=== PATIENT | female | born 1960 | race Caucasian/White ===

== ENCOUNTER 2016-12-10 23:53 | Emergency (ER) | payer OTHER ==
[2014-03-10 17:47] VITALS: BMI 40.8
[~2016-12-10 23:53] MED LIST: BACTRIM DS TABL1 TAB PO; BAYER CHEWABLE81 MG PO; CELEBREX200 MG PO; CYMBALTA60 MG PO; FARXIGA10 MG PO; FISH OIL 1,0001 CA1 PO; GLUCOPHAGE500 MG PO; GLUCOSAMINE & C1 CAP PO; HYDROCODON-ACE1 EAC9 PO; HYDROCODONE-APA1 TAB PO; LISINOPRIL5 MG GT; LYRICA75 MG PO; VITAMIN D2000 UNIT PO; WELCHOL625 MG PO; ZANAFLEX4 MG PO
[2016-12-11 00:41] LABS: BASOPHILS 0.2 % (0-2); EOSINOPHILS 1.3 % (0-7); HEMATOCRIT 37.1 % (36.0-48.0); IMMATURE GRANULOCYTES 0.3 % (0-5); LYMPHOCYTES 32.3 % (15-50); MCH 27.6 pg (26.0-34.0); MCHC 32.3 g/dL (31.0-37.0); MCV 85.5 fL (80.0-100.0); MEAN PLATELET VOLUME 11.4 fL (7.4-10.4); MONOCYTES 6.3 % (2-11); NEUTROPHILS 59.6 % (40-80); PLATELET COUNT 234 10x3/uL (130-400); RBC 4.34 10x6/uL (4.00-5.40); RDW 13.7 % (11.5-14.5); WBC 10.7 10x3/uL (4.8-10.8)
[2016-12-11 00:47] LABS: APPEARANCE CLEAR (CLEAR); COLOR YELLOW (YELLOW)
[2016-12-11 00:47] LABS: ALBUMIN 3.2 g/dL (3.4-5.0); ALKALINE PHOSPHATASE 86 U/L (46-116); ALT (SGPT) 47 U/L (10-68); BILIRUBIN - TOTAL 0.38 mg/dL (0.2-1.3); CALC OSMOLALITY 282 mosm/kg (275-300); CALCIUM 8.7 mg/dL (8.5-10.1); CARBON DIOXIDE 29.2 mmol/L (21.0-32.0); CHLORIDE - SERUM 104 mmol/L (98-107); CREATININE - SERUM 1.2 mg/dL (0.6-1.3); GLUCOSE 165 mg/dL (74-106); POTASSIUM - SERUM 3.4 mmol/L (3.5-5.1); SODIUM 139 mmol/L (136-145); UREA NITROGEN 15 mg/dL (7-18); eGFR NON AFRICAN AMERICAN 50 mL/min (90-120)
[2016-12-11 00:48] LABS: BILIRUBIN NEGATIVE (NEGATIVE); GLUCOSE NEGATIVE (NEGATIVE); KETONE NEGATIVE (NEGATIVE); LEUKOCYTE ESTERASE TRACE (NEGATIVE); NITRITE NEGATIVE (NEGATIVE); PROTEIN 1+ mg/dL (NEGATIVE); UROBILINOGEN NORMAL (NORMAL)
[2016-12-11 00:49] LABS: BACTERIA MODERATE /hpf (NONE SEEN); EPITHELIAL CELLS 0-5 /hpf (0-5); GRANULAR CAST 0-5 /lpf (NONE SEEN); MUCUS <1+ /lpf (NONE SEEN); RED CELLS - URINE 0-5 /hpf (0-5); WHITE CELLS - URINE 0-5 /hpf (0-5)
[2016-12-11 00:51] LABS: ACETAMINOPHEN < 0.2 ug/mL (10.0-30.0)
[2016-12-11 00:53] LABS: UDS - AMPHET NEGATIVE QUAL (NEGATIVE); UDS - BARB NEGATIVE QUAL (NEGATIVE); UDS - BENZO NEGATIVE QUAL (NEGATIVE); UDS - COCAINE NEGATIVE QUAL (NEGATIVE); UDS - METH NEGATIVE QUAL (NEGATIVE); UDS - OPIATE NEGATIVE QUAL (NEGATIVE); UDS - PCP NEGATIVE QUAL (NEGATIVE); UDS - THC NEGATIVE QUAL (NEGATIVE)
== END 2016-12-11 11:43 | disposition home or self-care (01) ==
LOC: D.ER 23:53
PROVIDERS: Family Medicine
DX: T42.6X2A Poisoning by other antiepileptic and sedative-hypnotic drugs, intentional self-harm, initial encounter (principal); Y92.89 Other specified places as the place of occurrence of the external cause; F19.10 Other psychoactive substance abuse, uncomplicated; E11.9 Type 2 diabetes mellitus without complications; I10 Essential (primary) hypertension; R00.0 Tachycardia, unspecified

== ENCOUNTER → 2018-06-16 18:32 | Outpatient (CLI) | payer OTHER ==
[2014-03-10 17:47] VITALS: BMI 40.8
== END | disposition home or self-care (01) ==
LOC: D.MAMMO 05-20 11:45
DX: Z12.31 Encounter for screening mammogram for malignant neoplasm of breast (principal)

== ENCOUNTER 2018-09-03 19:00 | Outpatient (CLI) | payer OTHER ==
[2014-03-10 17:47] VITALS: BMI 40.8
== END 2018-09-03 23:59 | disposition home or self-care (01) ==
LOC: D.MAMMO 19:00
PROVIDERS: ATTEND Family Medicine
DX: R92.8 Other abnormal and inconclusive findings on diagnostic imaging of breast (principal)

== ENCOUNTER 2018-09-25 11:50 | Observation (INO) | payer OTHER ==
[2018-09-25] VITALS (13 sets, daily range): BP systolic 101–169; BP diastolic 80–97; Ht 170.2 cm; Wt 106.9 kg
[~2018-09-25] VITALS: Ht 170.2 cm; Wt 106.9 kg
--- NOTE | 2018-09-25 12:10 | NUR ---
SPOKE WITH ABIOLA AT [facility] - RECOMMENDS SUPPORTIVE CARE AND MONITORING, THAT PATIENT MAY BECOME HYPOTENSIVE SO NO BP MEDS ARE INDICATED FOR HYPERTENSION. RECOMMENDED A MINIMUM OF 6-8 HOURS OF MONITORING WITH FLUIDS AND POSITIONING WELL MEDICATIONS INDICATED FOR SINUS BRADYCARDIA AND HYPOTENSION IF IT OCCURS (I.E. ATROPINE AND PRESSORS)
[2018-09-25 12:29] LABS: BASOPHILS 0.1 % (0-2); EOSINOPHILS 0.2 % (0-7); HEMATOCRIT 39.9 % (36.0-48.0); HEMOGLOBIN 13.2 g/dL (12-16); IMMATURE GRANULOCYTES 0.4 % (0-5); LYMPHOCYTES 18.8 % (15-50); MCH 26.9 pg (26.0-34.0); MCHC 33.1 g/dL (31.0-37.0); MCV 81.3 fL (80.0-100.0); MEAN PLATELET VOLUME 11.6 fL (7.4-10.4); MONOCYTES 5.8 % (2-11); NEUTROPHILS 74.7 % (40-80); RBC 4.91 10x6/uL (4.00-5.40); RDW 14.4 % (11.5-14.5); WBC 16.8 10x3/uL (4.8-10.8)
--- NOTE | 2018-09-25 12:34 | NUR ---
SITTER HERE TO WATCH PT.
--- NOTE | 2018-09-25 12:38 | NUR ---
DISCUSS WITH PT WHAT IS GOING ON IN HER LIFE TO UPSET HER, SHE STATES HER MOM IN JULY, THEN SHE HAD TO TAKE CARE OF HER FATHER, HER YOUNGEST DAUGHTER GRADUATED, SHE STATES SHE REALLY NEVER GOT TO GRIEVE HER MOM'S .
[2018-09-25 12:47] LABS: ALBUMIN 3.6 g/dL (3.4-5.0); ANION GAP 14.5 mmol/L (8-16); BILIRUBIN - TOTAL 0.83 mg/dL (0.2-1.3); CARBON DIOXIDE 22.6 mmol/L (21.0-32.0); CREATININE - SERUM 1.1 mg/dL (0.6-1.3); POTASSIUM - SERUM 4.1 mmol/L (3.5-5.1); PROTEIN - SERUM 7.9 g/dL (6.4-8.2)
[2018-09-25 12:54] LABS: PLATELET COUNT 302 10x3/uL (130-400)
[2018-09-25 13:02] LABS: UDS - AMPHET NEGATIVE QUAL (NEGATIVE); UDS - BARB NEGATIVE QUAL (NEGATIVE); UDS - BENZO NEGATIVE QUAL (NEGATIVE); UDS - COCAINE NEGATIVE QUAL (NEGATIVE); UDS - OPIATE NEGATIVE QUAL (NEGATIVE); UDS - PCP NEGATIVE QUAL (NEGATIVE); UDS - THC NEGATIVE QUAL (NEGATIVE)
[2018-09-25 13:09] LABS: APPEARANCE CLEAR (CLEAR); COLOR YELLOW (YELLOW); NITRITE NEGATIVE (NEGATIVE); PROTEIN 1+ mg/dL (NEGATIVE); SPECIFIC GRAVITY 1.015 (1.005-1.020)
[2018-09-25 13:10] LABS: BACTERIA FEW /hpf (NONE SEEN); BILIRUBIN NEGATIVE (NEGATIVE); EPITHELIAL CELLS RARE /hpf (0-5); GLUCOSE 1000 mg/dL (NEGATIVE); KETONE NEGATIVE (NEGATIVE); MUCUS <1+ /lpf (NONE SEEN); UROBILINOGEN NORMAL (NORMAL); WHITE CELLS - URINE RARE /hpf (0-5)
--- NOTE | 2018-09-25 13:22 | NUR ---
DR ROBERTS WHO IS STANDING IN FOR DR SMILEY WAS NOTIFIED AND 1:1 SITTER OBSERVATION ORDERED. SITTER AT BEDSIDE. NOTIFIED CHARGE NURSE AND ATTENDING IN REGARDS TO ASSESSMENT FINDINGS. RESOURCES GIVEN TO PATIENT AND SAFETY PLAN INITIATED.
--- NOTE | 2018-09-25 16:36 | NUR ---
FSBS [address] MCFADDEN FOR NEW ORDERS
--- NOTE | 2018-09-25 17:42 | NUR ---
PATIENT BEGAN YANKED OUT IV, STATING I'M LEAVING, BECAME VERY AGRESSIVE AND SCRAMING AT THE TOP OF HER LUNGS. CURSING AND CLALLING STAFF NAMES. PATIENT SCREAMING AND YELLING OUT SHE IS DIABETIC AND SHE COULD , WILL NOT LISTEN TO ANYTHING THE STAFF HAS TO SAY AND HAS BECOME A DEFINATE THEAT TO SELF, YELLING I WANT TO , I JUST WANT TO , DR. MCFADDEN PAGED THROUGH ANSWERING SERVICE FOR FURTHER INSTRUCTION.
--- NOTE | 2018-09-25 18:42 | NUR ---
PATIENT C/O NAUSEA, WATER TAKEN FROM HER AND ZOFRAN GIVEN, AID THEN GAVE WATER BACK TO HER
--- NOTE | 2018-09-25 19:05 | NUR ---
SHIFT ASSESSMENT COMPLETED - SEE FLOWSHEET PATIENT AGITATED YELLING, RESTRAINED AT THIS TIME. PATIENT AWARE TO SELF ONLY. VSS CPOC
--- NOTE | 2018-09-25 20:00 | NUR ---
ATTEMPTS MADE TO REORIENT PATIENT, RESTRAINT REMOVED AT THIS TIME - PATIENT UP TO BEDSIDE WITH MINIMAL ASSISTANCE, COMPLETE LINEN CHANGE COMPLETED. PATIENT VOIDED IN BEDSIDE AND RETURNED TO BED, PLACED BACK ON ICU MONITORING, SITTER AT BEDSIDE. VSS CPOC
--- NOTE | 2018-09-25 20:30 | NUR ---
RESTRAINTS RETURNED AT THIS TIME, PATIENT PULLING AT IV'S AND ATTEMPTING TO REMOVE OXYGEN. REORIENTATION ATTEMPTED.
--- NOTE | 2018-09-25 22:30 | NUR ---
PATIENT SWEATING PROFUSELY, BLOOD SUGAR CHECKED AND INSULIN RECEIVED SEE FLOWSHEET AND EMAR FOR MEDICATION ADMINISTRATION. COMPLETE LINEN CHANGE DONE, PATIENT ASSISTED TO BEDSIDE COMMODE SET UP FOR BATH, PATIENT PERFORMED BATH INDEPENDANTLY. MOVED BACK TO BED AND RE CONNECTED TO ICU MONITORS AT THIS TIME.
--- NOTE | 2018-09-25 23:00 | NUR ---
PATIENT HALLUCINATING AT THIS TIME. SCREAMING WANTING SITTER TO TURN THE LIGHT OFF THE CEILING. STATED "THERES A BUG ON YOUR HEAD" PATIENT CONTINUE TO SWEAT PROFUSELY AND STARE AT THE CEILING LOOKING AT THINGS THAT AREN'T THERE
[2018-09-26] VITALS (23 sets, daily range): BP systolic 77–142; BP diastolic 46–93
--- NOTE | 2018-09-26 01:12 | NUR ---
SITTER AT BEDSIDE - PATIENT SLEEPING OFF AND ON - VSS CPOC
--- NOTE | 2018-09-26 03:15 | NUR ---
REASSESSMENT COMPLETED SEE FLOWSHEET
[2018-09-26 03:38] LABS: BASOPHILS 0.2 % (0-2); EOSINOPHILS 0.3 % (0-7); HEMATOCRIT 41.5 % (36.0-48.0); HEMOGLOBIN 13.9 g/dL (12-16); IMMATURE GRANULOCYTES 0.4 % (0-5); LYMPHOCYTES 18.8 % (15-50); MCH 27.1 pg (26.0-34.0); MCHC 33.5 g/dL (31.0-37.0); MCV 81.1 fL (80.0-100.0); MEAN PLATELET VOLUME 11.5 fL (7.4-10.4); MONOCYTES 4.9 % (2-11); NEUTROPHILS 75.4 % (40-80); PLATELET COUNT 254 10x3/uL (130-400); RBC 5.12 10x6/uL (4.00-5.40); RDW 14.3 % (11.5-14.5); WBC 19.8 10x3/uL (4.8-10.8)
[2018-09-26 03:54] LABS: ANION GAP 16.4 mmol/L (8-16); CALCIUM 8.9 mg/dL (8.5-10.1); CARBON DIOXIDE 19.6 mmol/L (21.0-32.0)
--- NOTE | 2018-09-26 06:11 | NUR ---
IV START ATTEMPT X 2 - UNSUCCESSFUL, NO IV ACCESS AT THIS TIME. PT AWAKE ALERT AND ORIENTED. X4 VSS CPOC
--- NOTE | 2018-09-26 10:30 | NUR ---
PATIENT FAMILY BROUGHT A SUACIDE NOTE MADE BY PATIENT, COPY PLACED IN CHART.
--- NOTE | 2018-09-26 15:42 | NUR ---
reviewed pt's case with dr. gomes and after completing frequent screener, it was felt by dr. gomes that the pt's observation status could be changed to line of sight.
--- NOTE | 2018-09-26 19:05 | NUR ---
PT COMPLAINS OF HEADACHE LASTING ALL DAY AND NAUSEA THAT JUST STARTED FOR THE LAST FEW HOURS, PATIENT RECEIVED ZOFRAN 1840 - PATIENT EDUCATION PROVIDED REGARDING MEDICATION SCHEDULE. COLD RAG PROVIDED FOR COMFORT. PATIENT AWAKE ALERT AND ORIENTED - SHIFT ASSESSMENT COMPLETED SEE FLOWSHEET
--- NOTE | 2018-09-26 20:17 | NUR ---
PAGED GIZZARD SKIN REMOVER
--- NOTE | 2018-09-26 20:29 | NUR ---
DR MCFADDEN RETURNED PAGE NEW ORDERS RECEIVED
--- NOTE | 2018-09-26 20:35 | NUR ---
PATIENT OOB TO BEDSIDE WITH MINIMAL ASSITANCE, URINE NOTED
--- NOTE | 2018-09-26 23:01 | NUR ---
REASSESMENT COMPLETED SEE FLOWSHEET
[2018-09-27] VITALS (21 sets, daily range): BP systolic 107–156; BP diastolic 55–86
--- NOTE | 2018-09-27 00:21 | NUR ---
GAVE REPORT TO JAS BEAVER
--- NOTE | 2018-09-27 03:14 | NUR ---
WENT INTO PATIENTS ROOM DUE TO LEAD BEING OFF FROM HEART MONITOR. MONITOR BACK ON. PATIENT COMPLAINED OF STILL HAVING HEADACHE AND NOT BEING ABLE TO SLEEP. TYLENOL NOT ABLE TO GIVE YET. VITALS WNL. CPOC. WILL CONTINUE TO MONITOR.
[2018-09-27 04:15] LABS: BASOPHILS 0.3 % (0-2); EOSINOPHILS 1.4 % (0-7); HEMOGLOBIN 12.4 g/dL (12-16); IMMATURE GRANULOCYTES 0.2 % (0-5); LYMPHOCYTES 35.6 % (15-50); MCHC 31.8 g/dL (31.0-37.0); MCV 81.8 fL (80.0-100.0); MEAN PLATELET VOLUME 10.9 fL (7.4-10.4); NEUTROPHILS 55.5 % (40-80); RBC 4.77 10x6/uL (4.00-5.40); RDW 14.4 % (11.5-14.5)
[2018-09-27 04:17] LABS: ANION GAP 14.2 mmol/L (8-16); CALCIUM 8.3 mg/dL (8.5-10.1); CARBON DIOXIDE 24.4 mmol/L (21.0-32.0); PLATELET COUNT 189 10x3/uL (130-400); POTASSIUM - SERUM 3.6 mmol/L (3.5-5.1)
--- NOTE | 2018-09-27 05:02 | NUR ---
TYLENOL GIVEN PER ORDER ON JUN FOR HEADACHE. DENIES FURTHER NEEDS. CPOC
--- NOTE | 2018-09-27 08:16 | NUR ---
AWAKE, ALERT AND ORIENTED, COOPERATIVE, SITTING UP EATING BREAKFAST, VS HAVE APPEARED TO RETRUN TO PATIENTS PERVIOUS NORMAL RANGE.
--- NOTE | 2018-09-27 10:03 | NUR ---
CALM, COOPERATIVE, WATCHING TV, NO DISTRESS NOTED
[2018-09-27] MEDS ORDERED: LYRICA100 MG PO (11:10)
[2018-09-27] MEDS ORDERED: DICLOFENAC SODI50 MG PO (11:11)
[2018-09-27] MEDS ORDERED: JANUMET XR 50-1 EACH PO (11:11)
--- NOTE | 2018-09-27 11:12 | NUR ---
AWAKE ALERT AND ORIENTED, C/O NAUSEA, ZOFRAN GIVEN, CALM AND COOPERATIVE.
--- NOTE | 2018-09-27 14:19 | NUR ---
PATIENT C/O BEING HOT, TEMP. 98.3, FSBS 155 NO NOTED DISTESS
--- NOTE | 2018-09-27 19:27 | NUR ---
UP IN BED WATCHING TV. NO DISTRESS NOTED AT THIS TIME. INTRODUCED SELF. DENIES NEEDS OR PAIN. CALL LIGHT IN REACH. WILL CONTINUE TO MONITOR. CPOC.
--- NOTE | 2018-09-27 21:00 | NUR ---
CHD BATH GIVEN. PATIENT INDEPENDENTLY BATHED SELF. NEW GOWN APPLIED. NIGHT TIME MEDS GIVEN. DENIES NEEDS OR PAIN AT THIS TIME. WCTM
--- NOTE | 2018-09-27 22:59 | NUR ---
LYING IN BED WATCHING TV. CALL LIGHT IN REACH. DENIES NEEDS OR PAIN AT THIS TIME. TM
[2018-09-28] VITALS (18 sets, daily range): BP systolic 105–151; BP diastolic 58–86
--- NOTE | 2018-09-28 01:00 | NUR ---
PT RESTING QUEITLY. EYE CLOSED. RESP EVEN AND UNLABORED. NO DISTRESS NOTED. CPOC
--- NOTE | 2018-09-28 03:00 | NUR ---
pt resting quietly. no distress noted. cl in reach. cpoc.
--- NOTE | 2018-09-28 04:42 | NUR ---
PATIENT IS SLEEPING WITH SNORING RESP. NO CHANGES IN PAITENT CONDITION, AGREE WITH PREVIOUS ASSESSMENT. CM SR AT 82. CALL LIGHT WIHTIN REACH, BED IN LOW POSITION.
--- NOTE | 2018-09-28 05:04 | NUR ---
DAILY WEIGHT 235.3. PT RESTING QUIETLY. EYES CLOSED. NO DISTRESS NOTED. CPOC
--- NOTE | 2018-09-28 07:00 | NUR ---
SHIFT ASSESSMENT COMPELTED. PT CARE ASSUMED MONITORS ON AND WORKING, VITALS STABLE. NO SIGNS/SYMPTOMS OF PAIN OR DISCOMFORT NOTED. PT RESTING COMFORTABLY. PT HAS SITTER AT BEDSIDE, WILL CONTINUE TO OBSERVE.
--- NOTE | 2018-09-28 08:31 | HP ---
PATIENT: RAFAELA CUELLO MEDICAL RECORD: [id number] ACCOUNT: [id number] LOCATION:[facility] [id number] : 64 ADMISSION DATE: 09/25/18 PCP: KOKO LOZA DO HISTORY AND PHYSICAL EXAMINATION DATE OF ADMISSION: 09/25/2018 CHIEF COMPLAINT: Intentional overdose. HISTORY: This is a 58-year-old female who is a patient of Dr. Koko Loza. She was brought in, in a private automobile with a story that she took 120 of 4 mg Zanaflex at 10:00 a.m. in an intentional suicide attempt. In the ER, heart rate was in the 40s. Rest of her vital signs was stable. Liver enzymes were a little elevated. White count was 16,000. Urine drug screen was negative. Salicylate and acetaminophen levels were negative. She was admitted to ICU for further closer monitoring and evaluation. PAST MEDICAL AND SURGICAL HISTORY: (gained from chart as the patient is not her usual self) diabetes, hypertension, depression, arthritis, and fibromyalgia. She has had one other suicide attempt when she took multiple Ambien about 8 months ago. PAST SURGICAL HISTORY: Unknown. ALLERGIES: CEFDINIR. HOME MEDICATIONS: Lisinopril 5 mg a day, Celebrex 200 mg a day, Cymbalta 60 mg a day, aspirin 81 mg a day, glucosamine/chondroitin sulfate twice a day, vitamin D3 4000 units a day, fish oil 1000 mg a day, tizanidine 8 mg at bedtime, Lyrica 75 mg at bedtime, Welchol 625 mg once a day (?), metformin 1000 mg twice a day, Farxiga 5 mg once a day, and Branscomb 10/325 t.i.d. p.r.n. SOCIAL HISTORY: . HABITS: No tobacco, alcohol, or drugs. FAMILY HISTORY: Significant for coronary artery disease and diabetes. REVIEW OF SYSTEMS: Unobtainable in this patient. PHYSICAL EXAMINATION: VITAL SIGNS: Temperature 97.2, heart rate 46, respirations 18, blood pressure 150/83, and her O2 sat is 96%. GENERAL: Right now, she is in restraints to protect herself. She is combative. She is yelling. She has pulled IVs out. HEENT: Grossly within normal limits. NECK: Supple. HEART: Bradycardia. LUNGS: Clear. ABDOMEN: Soft and nontender. EXTREMITIES: No edema. LABORATORY DATA: CBC with white count of 16,800, hemoglobin 13.2, and hematocrit 39.9. Basic metabolic panel is all okay except glucose high at 362. AST is 129, ALT 205, and alkaline phosphatase 133. Urinalysis is normal. Urine HISTORY AND PHYSICAL [id number] RAFAELA CUELLO drug screen is negative. Salicylate level is negative. Acetaminophen level is negative. ASSESSMENT: 1. Intentional overdose of drug in tablet form. 2. Suicidal ideation. PLAN: ICU for close monitoring. Other tests or procedures as warranted. TRANSINT:[id number] Voice Confirmation ID: [id number] DOCUMENT ID: [id number] MEDHAT MCFADDEN MD at 0831 CC: [id number] DICTATION DATE: 09/27/18 1053 GROUP CAPTAIN: 09/27/18 1239 ADM IN [facility] [address] [id number]
--- NOTE | 2018-09-28 09:10 | NUR ---
DR MCFADDEN AT BEDSIDE, SAYS ITS OKAY FOR PT TO CONTINUE TAKING OVER THE COUNTER [place] SUPPLEMENT FOR NEUROPATHY. WAITING ON PSYCH TO SEE PT. PT AWAKE AND ALERRT, NO SIGNS/SYMPTOMS OF PAIN OR DISCOMFORT NOTED AT THIS TIME, WILL CONTINUE TO OBSERVE.
--- NOTE | 2018-09-28 11:00 | NUR ---
PT SITTING UP IN BED EATING LUNCH, MONITORS ON AND WROKING, VITALS STABLE, NO SIGNS/SYMPTOMS OF PAIN OR DISCOMFORT NOTED AT THIS TIME, WILL CONTINUE TO OBSERVE.
--- NOTE | 2018-09-28 13:00 | NUR ---
PT TO BEDSIDE COMMODE. MONITORS ON AND WORKING VITALS STABLE NO SIGNS/SYMPTOMS OF PAIN OR DISCOMFORT NOTED AT THIS TIME, WILL CONTINUE TO OBSERVE.
--- NOTE | 2018-09-28 15:00 | NUR ---
PT AWAKE AND ALERT, NO SIGNS/SYMPTOMS OF PAIN OR DISCOMFORT NOTED AT THIS TIME, MONITORS ON AND WORKING VITALS STABLE. WILL CONTINUE TO OBSERVE.
--- NOTE | 2018-09-28 16:54 | NUR ---
PT DENIES SI AT THIS TIME. PT DENIES PLAN. PT CONTINUES TO BE ON LINE OF SIGHT OBSERVATION. SITTER PRESENT. WILL REPORT ASSESSMENT AND FINDING TO DR. SMILEY.
--- NOTE | 2018-09-28 17:30 | NUR ---
PT UP IN CHAIR, TRAY GIVEN, NO OTHER NEEDS NOTED
--- NOTE | 2018-09-28 19:00 | NUR ---
REPORT RECEIVED, CARE ASSUMED. PT IS RESTING IN BED WATCHING TV AT THIS TIME. INITIAL ASSESSMENT COMPLETED, SEE FLOWSHEET FOR DETAILS. PT REQUESTED WE CALL DR SHEPARD AND INFORM HIM THAT SHE WILL BE UNABLE TO MAKE IT TO HER EGD TOMORROW, AND ALSO THAT WE CALL JONATHAN ON [address] TO MAKE SURE THEY ARE AWARE THAT SHE WILL NOT MAKE IT TO WORK ON FRIDAY. NO FURTHER NEEDS VOICED AT THIS TIME. NO SIGNS OF ACUTE DISTRESS. WILL CONTINUE TO MONITOR.
--- NOTE | 2018-09-28 21:00 | NUR ---
PT IS RESTING IN BED WITH EYES OPEN WATCHING TV AT THIS TIME. NO SIGNS OF ACUTE DISTRESS. WILL CONTINUE TO MONITOR.
--- NOTE | 2018-09-28 21:45 | NUR ---
RECEIVED PLACEMENT FOR PT AT [facility]. REPORT CALLED TO JUNI VALENZUELA. [facility] INFORMED OF THE NEED FOR TRANSFER OF PT. NO SIGNS OF ACUTE DISTRESS NOTED AT THIS TIME. WILL CONTINUE TO MONITOR.
--- NOTE | 2018-09-29 15:05 | CN ---
PATIENT NAME:RAFAELA CUELLO MEDICAL RECORD: [id number] : 64 LOCATION:[facility]6 ADMIT DATE: 09/25/18 ACCOUNT: [id number] CONSULTING PHYSICIAN: JEN SMILEY MD REFERRING PHYSICIAN: MEDHAT MCFADDEN MD DATE OF CONSULTATION: 09/28/2018 IDENTIFYING DATA: The patient is 58 years old. She is admitted to the hospital secondary to an overdose. CHIEF COMPLAINT: Depression. HISTORY OF PRESENT ILLNESS: The patient had an argument with her family. She took 120 of 4 mg Zanaflex tablets. She did this secretly. She deliberately did it with the intention of killing herself. She does not know how she got to the hospital, she just woke up here. She says that she feels overwhelmed by life stressors and talks about poor relationship with her , her children, and the of a relative recently. She apparently tried to kill herself 8 months ago by taking a bottle of Ambien and she did not receive medical attention, she just woke up the next day. She is endorsing numerous neurovegetative depressive symptoms. MENTAL STATUS EXAMINATION: The patient is awake, alert, and oriented fully. Her mood is depressed. Her affect is constricted. Thought processes are circumstantial. Memory, concentration, and abstraction abilities are mildly impaired and she denies any intent to harm others, but endorses a vague intent to hurt herself. ASSESSMENT: 1. Major depression. 2. Status post overdose. PLAN: The patient should be transferred to acute inpatient psychiatric care once medically stabilized. Her long-term prognosis is guarded. TRANSINT:[id number] Voice Confirmation ID: [id number] DOCUMENT ID: [id number] JEN SMILEY MD at 1505 CC: [id number] DICTATION DATE: 09/28/18 1633 PROFESSIONAL NURSING ASSISTANT: 09/28/18 1657 DIS IN 09/28/[id number] [place] [address]
== END 2018-09-28 22:05 | disposition short-term general hospital (02) ==
LOC: D.ER 11:50 → D.ICU 15:33 → OBSVTIME 15:34 → D.ICU 09-26 15:53
PROVIDERS: Family Medicine; ADMIT Family Medicine; ATTEND Family Medicine
DX: T42.8X2A Poisoning by antiparkinsonism drugs and other central muscle-tone depressants, intentional self-harm, initial encounter (principal); F32.9 Major depressive disorder, single episode, unspecified; R45.851 Suicidal ideations; R00.1 Bradycardia, unspecified; E11.9 Type 2 diabetes mellitus without complications; I10 Essential (primary) hypertension

== ENCOUNTER 2020-01-04 10:25 | Day surgery (SDC) | payer OTHER ==
[~2020-01-04] VITALS: Ht 170.2 cm; Wt 120.2 kg
[~2020-01-04 10:25] MED LIST changes: +DICLOFENAC SODI50 MG PO; +JANUMET XR 50-1 EACH PO; +LYRICA100 MG PO
[2020-01-04 10:51] LABS: HEMATOCRIT 39.2 % (36.0-48.0); HEMOGLOBIN 12.4 g/dL (12-16); MCH 27.1 pg (26.0-34.0); MCHC 31.6 g/dL (31.0-37.0); MCV 85.6 fL (80.0-100.0); MEAN PLATELET VOLUME 10.3 fL (7.4-10.4); RBC 4.58 10x6/uL (4.00-5.40); RDW 13.4 % (11.5-14.5); WBC 5.7 10x3/uL (4.8-10.8)
[2020-01-04 10:58] LABS: ANION GAP 12.2 mmol/L (8-16); CALCIUM 9.2 mg/dL (8.5-10.1); CARBON DIOXIDE 27.8 mmol/L (21.0-32.0); CREATININE - SERUM 1.2 mg/dL (0.6-1.3)
[2020-01-04] MEDS ORDERED: HYDROCODON-ACE1 EA10 PO (12:18)
[2020-01-04] MEDS ORDERED: TRAZODONE HCL150 MG PO (12:18)
[2020-01-04] MEDS ORDERED: ZOFRAN ODT4 MG/UDTAB PO (12:19)
[2020-01-04 12:20] VITALS: BP 129/71; Ht 170.2 cm; Wt 120.2 kg
--- NOTE | 2020-01-04 12:36 | NUR ---
POSITIVE FOR SUICIDE RISK SCREENING FOR LIFETIME QUESTION. REFUSES FURTHER EVALUATION, SEES A THERAPIST 3 TIMES A WEEK.
== END 2020-01-04 13:00 | disposition home or self-care (01) ==
LOC: D.OPS 10:25
PROVIDERS: Anesthesiology; ATTEND Podiatrist Foot & Ankle Surgery
DX: M20.42 Other hammer toe(s) (acquired), left foot (principal); M72.2 Plantar fascial fibromatosis; Z53.9 Procedure and treatment not carried out, unspecified reason

== ENCOUNTER 2020-01-07 05:29 | Day surgery (SDC) | payer OTHER ==
[~2020-01-07] VITALS: Ht 170.2 cm; Wt 120.2 kg
[~2020-01-07 05:29] MED LIST changes: +HYDROCODON-ACE1 EA10 PO; +TRAZODONE HCL150 MG PO; +ZOFRAN ODT4 MG/UDTAB PO
[2020-01-07 06:22] VITALS: BP 119/58; Ht 170.2 cm; Wt 120.2 kg
--- NOTE | 2020-01-07 06:35 | NUR ---
DR SMILEY NOTIFIED AND REVIEWED PT's BEHAVIOR AND ASSESSMENT RESULTS. PT IS A LOW RISK PERDRGURESKY. DR SMILEY STATED TO GIVE RESOURCES TO PT AT TIME OF DISCHARGE. NO FURTHER ORDERS AT THIS TIME. RESOURCES REVIEWED WITH PT AND SHE VERBALIZED UNDERSTANDING.
--- NOTE | 2020-01-07 06:46 | NUR ---
SPOKE WITH DR PACHECO REGARDING [address] BS, DR PACHECO STATES TO GIVE 15 UNITS REGULAR INSULIN IV. ORDERS PLACED.
[2020-01-07] MEDS ORDERED: HYDROCODON-ACE1 EA10 PO (10:42)
--- NOTE | 2020-01-07 11:25 | NUR ---
1050 BS [address] EASON AWARE NO ORDERS NOTED
--- NOTE | 2020-01-07 11:57 | NUR ---
1140 IV REMOVED AND INSTRUCTIONS GIVEN
== END 2020-01-07 11:50 | disposition home or self-care (01) ==
LOC: D.OPS 05:29
PROVIDERS: ATTEND Podiatrist Foot & Ankle Surgery
DX: M20.42 Other hammer toe(s) (acquired), left foot (principal); S93.505A Unspecified sprain of left lesser toe(s), initial encounter; X58.XXXA Exposure to other specified factors, initial encounter